=== PATIENT | female | born 1965 | race Caucasian/White ===

== ENCOUNTER → 2017-01-14 | Outpatient (CLI) | payer OTHER | LOC: FIMAGING 09:27 | PROVIDERS: ATTEND Physician Assistant Medical | DX: D25.9 Leiomyoma of uterus, unspecified (principal) ==

== ENCOUNTER 2017-03-15 06:07 | Observation (INO) | payer OTHER ==
[~2017-03-15 06:07] MED LIST: ceFAZolin 2 GM/SWFI 2 GM/20 ML SYR IVP ONE
[2017-03-15] MEDS ORDERED: LR 1,000 ML IV ONE (06:30)
[2017-03-15] MEDS ORDERED: LIDOCAINE 1% 2 ML INJ ID PRN (06:30)
[2017-03-15] MEDS ORDERED: VASOPRESSIN 20 UNIT/ML VIAL ONE (07:00)
[2017-03-15] MEDS ORDERED: HYDROmorphONE/DILAUDID 1 MG/ML INJ IVP PRN (07:17)
[2017-03-15] MEDS ORDERED: PROMETHAZINE HCL 25 MG/ML INJ IVP PRN (07:17)
[2017-03-15] MEDS ORDERED: fentaNYL 100 MCG/2 ML INJ IVP PRN (07:17)
[2017-03-15] MEDS ORDERED: ONDANSETRON 4 MG/2 ML VIAL IVP PRN ×2 (07:17→10:06)
[2017-03-15] MEDS ORDERED: ALBUTEROL 3 ML DEYVIAL IH PRN (07:17)
[2017-03-15] MEDS ORDERED: NALOXONE HCL 0.4 MG/ML INJ IVP PRN ×2 (07:17→10:06)
[2017-03-15] MEDS ORDERED: OXYCODONE/APAP 5/325 TAB PO PRN (07:17)
[2017-03-15] MEDS ORDERED: MIDAZOLAM 2 MG/2 ML VIAL IVP ONE (07:17)
--- NOTE | 2017-03-15 07:19 | PDANEPAE ---
ANE History of Present Illness Hysterectomy ANE Past Medical History - Cardiovascular History Hx Hypertension: No Hx Arrhythmias: No Hx Chest Pain: No Hx Coronary Artery / Peripheral Vascular Disease: No Hx CHF / Valvular Disease: No Hx Palpitations: No - Pulmonary History Hx COPD: No Hx Asthma/Reactive Airway Disease: No Hx Recent Upper Respiratory Infection: No Hx Oxygen in Use at Home: No Hx Sleep Apnea: No Sleep Apnea Screening Result - Last Documented: Positive - Neurologic History Hx Cerebrovascular Accident: No Hx Seizures: No Hx Dementia: No - Endocrine History Hx Diabetes: No - Renal History Hx Renal Disorders: No - Liver History Hx Hepatic Disorders: No - Neurological & Psychiatric Hx Hx Neurological and Psychiatric Disorders: No - Cancer History Hx Cancer: No - Congenital Disorder History Hx Congenital Disorders: No - GI History Hx Gastrointestinal Disorders: Yes Gastrointestinal History Comment: ACID REFLUX. ULCER WHEN YOUNGER. FECAL IMPACTIONS IN CHILDHOOD - Other Health History Other Health History: NEG. ANEMIA - TAKING FERROUS SULFATE - IMPROVING - Chronic Pain History Chronic Pain: Yes (LOW ABD & BLOATING) - Surgical History Prior Surgeries: APPENDECTOMY 1989 ANE Review of Systems Review of Systems: - Exercise capacity METS (RN): 5 METS ANE Patient History - Allergies Allergies/Adverse Reactions: No Known Allergies Allergy (Unverified 02/14/17 11:38) - Home Medications Home Medications: Ferrous Sulfate [Ferrous Sulf 325 MG (*)] 325 mg PO DAILY 02/14/17 [Last Taken 03/07/17] Herbals/Supplements -Info Only 1 ea PO DAILY 02/14/17 [Last Taken 03/07/17] Ibuprofen [Motrin (*)] 200 mg PO DAILY PRN 02/14/17 [Last Taken 03/11/17] - NPO status NPO Since - Liquids (Date): 03/14/17 NPO Since - Liquids (Time): 23:00 NPO Since - Solids (Date): 03/14/17 NPO Since - Solids (Time): 20:30 - Smoking Hx Smoking Status: Never smoked - Family Anes Hx Family Hx Anesthesia Complications: NEG ANE Labs/Vital Signs - Vital Signs Blood Pressure: 158/107 Heart Rate: 61 Respiratory Rate: 22 O2 Sat (%): 95 Height: 162.56 cm Weight: 79.379 kg ANE Physical Exam - Airway Neck exam: FROM Mallampati Score: Class 2 Mouth exam: normal dental/mouth exam - Pulmonary Pulmonary: clear to auscultation - Cardiovascular Cardiovascular: regular rate and rhythym - ASA Status ASA Status: II ANE Anesthesia Plan Anesthesia Plan: general endotracheal anesthesia (discussed diastyolic BP and recommended future antihypertensive treatment)
[2017-03-15] MEDS ORDERED: fentaNYL 250 MCG/5 ML INJ ONE (07:22)
[2017-03-15] MEDS ORDERED: PROPOFOL/EMULSION 500 MG/50 ML BOTTLE IV ONE (07:22)
[2017-03-15] MEDS ORDERED: morphINE PF 5 MG/10 ML INJ ONE (07:39)
--- NOTE | 2017-03-15 07:52 | PDHPUP ---
History & Physical Update H&P update statement: This history and physical update is based on an assessment of the patient which was completed after admission or registration (within 24 hours), but prior to the surgery/procedure.
[2017-03-15] MEDS ORDERED: epHEDrine SULFATE 10 MG/ML SYR ONE (08:37)
[2017-03-15] MEDS ORDERED: METOCLOPRAMIDE 10 MG/2 ML VIAL ONE (08:39)
[2017-03-15] MEDS ORDERED: ONDANSETRON 4 MG/2 ML VIAL ONE (08:39)
[2017-03-15] MEDS ORDERED: DEXAMETHASONE 4 MG/ML VIAL ONE ×2 (08:39)
[2017-03-15] MEDS ORDERED: RANITIDINE 50 MG/2 ML VIAL ONE (08:39)
--- NOTE | 2017-03-15 10:06 | POSTANESTH ---
Post Anesthetic Evaluation Cardiovascular Status: Normal, Stable Respiratory Status: Normal, Stable Level of Consciousness/Mental Status: Can Participate in Eval, Alert and Oriented Pain Control: Adequate, Prn Tx Ordered Nausea/Vomiting Control: Adequate, Prn Tx Ordered Complications Possibly Related to Anesthesia: None Noted
[2017-03-15] MEDS ORDERED: HYDROCODONE/APAP 5/325 TAB PO PRN (11:24)
[2017-03-15] MEDS ORDERED: LR 1,000 ML IV SCH (11:30)
[2017-03-15 16:03] LABS: HEMATOCRIT 42.8 % (38.0-47.0); HEMOGLOBIN 14.3 g/dL (12.6-16.3)
[2017-03-15] MEDS: IBUPROFEN 600 MG TAB PO SCH (19:01)
[2017-03-15] MEDS: ACETAMINOPHEN 500 MG TAB PO PRN (21:13)
[2017-03-16 00:21] VITALS: RESP 16; TEMP 97.9; O2SAT 97
[2017-03-16] MEDS: IBUPROFEN 600 MG TAB PO SCH ×2 (00:58→07:53)
--- NOTE | 2017-03-16 04:38 | GOP ---
[f rep st] OPERATIVE REPORT DATE OF OPERATION: 03/15/2017 SURGEON: Stacie Lamas MD [employer] CLERK: Bing Greer ANESTHESIA: General with LMA plus spinal morphine for postop pain control. ANESTHESIOLOGIST: Shane Lassiter DO PREOPERATIVE DIAGNOSIS: 1. Dysfunctional uterine bleeding. 2. Submucosal uterine fibroids. 3. Anemia. POSTOPERATIVE DIAGNOSIS: 1. Dysfunctional uterine bleeding. 2. Submucosal uterine fibroids. 3. Anemia. PROCEDURE PERFORMED: Total vaginal hysterectomy with bilateral salpingectomy. FINDINGS: Very large uterine fibroids, about 10-12 weeks' size, that were making up the bulk of the uterus. Normal-appearing cervix and normal-appearing ovaries and fallopian tubes. ESTIMATED BLOOD LOSS: 200 cc. INDICATIONS: Patient is a 51-year-old who underwent a NovaSure endometrial ablation procedure in 2014 for problematic bleeding. This was not beneficial. When she had a repeat ultrasound, it was noted that she had a 6 cm uterine fibroid impinging into the endometrium. Because she had a failed NovaSure, decided that definitive therapy because of her anemia would be beneficial. She desires to proceed. Also, she has had a biopsy, indicating normal endometrial tissue. DESCRIPTION OF PROCEDURE: With informed consent signed, patient taken to the operating room, placed under spinal then general anesthesia. Placed in the high dorsal lithotomy position, prepped and draped in a sterile fashion. Abrams catheter placed. Tenaculum placed on the cervix for traction and weighted speculum placed in the posterior fornix. A posterior colpotomy was performed, but it was very difficult entering the posterior cul-de-sac due to, I think, what was peritoneal scarring to the fibroids. However, I was able to partially get in posteriorly and get the left uterosacral ligament clamped, cut and Yu suture ligated. A baseball stitch was not performed because I could not get to the posterior peritoneal edge and there was no bleeding, so it was not felt to be indicated. The cardinal ligament on the left side was grasped, clamped, cut, and suture ligated. The same was done on the left. Again, the uterus was quite large and bulky, and it was difficult to get around the edges of the uterus getting the pedicles, however, was able to get the broad ligament vessels and then which were clamped, cut, and suture ligated, and then anteriorly, I was able to enter sharply and then attached the anterior and posterior leaves of the broad ligament together in a single clamp. Next, because the uterus was so large, I injected with Pitressin and that was 1 unit in 30 cc of normal saline and this was injected posteriorly and anteriorly , and the uterus was delivered partially posteriorly and then morcellated with a scalpel, several pieces, to remove it and tacked our remove it vaginally. The uterus was retroverted and delivered posteriorly and the pedicles that were left were the utero-ovarian ligaments, and these were clamped, cut, free tied and suture ligated on both sides. The uterus was handed off for specimen. Then, on the patient's right, the fallopian tube was identified, grasped with a Miguel Angel clam, and then transected with the Metzenbaum scissors, and then free tied and suture ligated with 2-0 Vicryl. The same was done on the patient's left, and hemostasis was noted. Hemostasis was noted also of the utero-ovarian ligament, so at this point, the peritoneum was identified and brought into the vaginal cuff, and then the vaginal cuff was closed with [id number] sutures in a vertical fashion. Hemostasis again was noted, and patient was placed in supine position, awakened in the operating room, taken to the recovery room in stable condition. Tolerated the procedure well. Of note, this was a difficult hysterectomy, taking about 30 minutes longer because of the large fibroid mass. COMPLICATIONS: None. /[id number]/MODL MTDD
[2017-03-16 06:04] VITALS: BP 107/71; PULSE 55
[2017-03-16] MEDS: ACETAMINOPHEN 500 MG TAB PO PRN (10:01)
[2017-03-16] MEDS ORDERED: FLU VACC QS 2017-18 (3YR+)/PF 0.5 ML SYR (FLUARIX QUAD) IM ONE ×2 (11:13→11:30)
[2017-03-16] MEDS ORDERED: IBUPROFEN 600 MG TAB PO SCH (11:35)
--- NOTE | 2017-03-16 12:00 | SOAPPROG ---
SOAP Progress Note Assessment/Plan: Assessment:pod #1 doing well , still has a headache and developing mild pelvic pressure , steven regular diet and urinating well Plan:D/C home today and f/u in 2 weeks , d/c meds rx written for [facility] , d/c instructions given 03/16/17 11:55 Subjective: had a head ache last night feeling a little better with tylenol , having pos flatus and eating well , good pain control Objective: Vital Signs Temp Pulse Resp BP Pulse Ox 36.6 C 55 L 16 107/71 97 03/16/17 06:00 03/16/17 06:00 03/16/17 06:00 03/16/17 06:00 03/16/17 06:00 Laboratory Results 03/15/17 15:55 03/15/17 03/16/17 03/17/17 05:59 05:59 05:59 Intake Total 5050 Output Total 2150 Balance 2900 abd soft few bowel sounds, lungs CTA , perineum scant blood - Time Spent With Patient Time Spent With Patient: Assessment: POSTOP 20 MIN SPENT WITH PT - Pending Discharge Pending Discharge Within 24 Hours: Yes Pending Discharge Date: 03/31/17 Pending Discharge Time: 11:00
== END 2017-03-16 12:20 | disposition home or self-care (01) ==
LOC: F3E 06:07 → FOB 11:49
PROVIDERS: ADMIT Obstetrics & Gynecology Gynecology; ATTEND Obstetrics & Gynecology Gynecology
PROC: 0UT77ZZ Resection of Bilateral Fallopian Tubes, Via Natural or Artificial Opening (ICD-10-PCS; principal; 2017-03-15 07:30)
PROC: 0UT97ZZ Resection of Uterus, Via Natural or Artificial Opening (ICD-10-PCS; principal; 2017-03-15 07:30)
DX: D25.0 Submucous leiomyoma of uterus (principal); N93.9 Abnormal uterine and vaginal bleeding, unspecified; D64.9 Anemia, unspecified; R51 Headache; Z23 Encounter for immunization
CPT/HCPCS: 58262; 90471; G0378; G0008; J0690; J1100; J2250; J2274; J2405; J2704; J2765; J2780; J3010